=== PATIENT | female | born 1960 | race Caucasian/White ===

== ENCOUNTER → 2025-03-03 13:08 | Outpatient (BNVA) | payer MEDICARE, SELFPAY | PROVIDERS: PCP Family Medicine; Referring Provider Family Medicine; Visit Provider Physician Assistant Surgical | DX: J44.89 Other specified chronic obstructive pulmonary disease (principal) | CPT/HCPCS: 99205 ==

== ENCOUNTER 2025-04-07 03:46 | Outpatient (CLI) | payer MEDICARE, SELFPAY ==
[2025-04-07] MEDS: Methacholine 100 MG VIAL IH (17:16)
[2025-04-07] MEDS: Inhaler, Assist Device 1 EACH MC (17:16)
[2025-04-07] MEDS: Albuterol HFA 18 GM 200 PUFF INH IH (17:17)
--- NOTE | 2025-04-28 09:17 | W.PFT ---
Date of service: 04/07/25 Time of Service: 14:53 Pulmonary Function Test Result Indications: Asthma/COPD Impression 1. Good patient effort was noted. ATS standards for reproducibility were met. 2. Normal spirometry. 3. At 16 mg/mL of methacholine, there was only a 11% fall in FEV1. Conclusion: negative methacholine challenge test
== END 2025-04-07 03:47 | disposition home or self-care (01) ==
LOC: RT 03:46
PROVIDERS: PCP Family Medicine; Referring Provider Physician Assistant Surgical; Visit Provider Internal Medicine Pulmonary Disease
DX: J44.89 Other specified chronic obstructive pulmonary disease (principal)
CPT/HCPCS: 94070; 94726; 94729; 95070; J7674

== ENCOUNTER → 2025-04-09 13:25 | Outpatient (BNVA) | payer MEDICARE, SELFPAY | PROVIDERS: PCP Family Medicine; Referring Provider Family Medicine; Visit Provider Physician Assistant Surgical | DX: R06.00 Dyspnea, unspecified (principal) | CPT/HCPCS: 99214 ==

== ENCOUNTER 2025-05-06 02:33 | Outpatient (CLI) | payer MEDICARE, SELFPAY ==
--- NOTE | 2025-05-06 07:30 | DI.CT_ITS ---
Exam(s) CT CHEST WO EXAM: CT CHEST WO CLINICAL HISTORY: cough and dyspnea,r06.00. TECHNIQUE: Multi planar reconstructions were performed. CONTRAST MATERIAL: None COMPARISON: Outside XR Chest 2 Views from 12/26/2024 FINDINGS: CHEST: LUNGS: There are no confluent pulmonary infiltrates nor pleural effusions. There is a small noncalcified nodule in the right lower lobe measuring 4 mm. There is also a 3 mm noncalcified nodule in the right middle lobe. There is also a 8 millimeter nodular infiltrate in the posterior basal segment of the left lower lobe. MEDIASTINUM: There is no obvious hilar nor mediastinal adenopathy. Visualized thyroid unremarkable.The esophagus is mildly dilated and contains fluid material throughout its intrathoracic length. Small hiatal hernia. CARDIAC: Heart size is normal. There is no pericardial effusion. The diameter of the ascending thoracic aorta is upper normal. However, they aortic arch is right-sided. The left subclavian vein attains the left-side by passing behind the esophagus, anterior to the vertebral bodies. The descending thoracic aorta is also right-sided VISUALIZED UPPER ABDOMEN:The abdominal aorta is rule right of center in the partially visualized upper abdomen. No adrenal masses. Parapelvic cysts in left kidney. Spleen size normal. Liver is on the right side. Spleen is on the left side. OSSEOUS: No significant osseous lesions.No fractures. Multilevel chronic degenerative disc disease noted throughout the thoracic spinal column. There is also a calcific density projecting posteriorly from the T9-10 disc space which is consistent with a partially calcified prominent disc herniation. IMPRESSION: 1. Right-sided aortic arch and right side descending thoracic aorta again noted, as evident on the outside chest x-ray of 12/26/2024. No associated dextrocardia 2. There is a significant disc herniation incidentally noted at the T9-10 level which causes some compression of the thecal sac at this level. This disc herniation is partially calcified. 3. There are 3 small noncalcified nodular long densities, largest measuring 8 mm and located in the posterior basal segment of the left lower lobe. The other 2 smaller right lung nodules are in the right lower lobe and right middle lobe. Recommend follow-up CT scan in 3 months. RADIATION DOSE DELIVERED: 145.11mGy.cm Total DLP DATA REPOSITORY: All CT scans at this facility are submitted to the National Radiology Data Registry (NRDR) Dose Index Registry (DIR) with the [employer] (A[employer]). RADIATION OPTIMIZATION: All CT scans at this facility use at least one of these dose optimization techniques: automated exposure control; mA and/or kV adjustment per patient size (includes targeted exams where dose is matched to clinical indication); or iterative reconstruction.
--- NOTE | 2025-05-06 14:30 | DI.US_ITS ---
APPROVED REPORT EXAM: Comprehensive 2D, Doppler, and color-flow Echocardiogram Patient Location: Out-Patient [employer] Specialist: Anna Cuellar RDCS (AE) Indications: Wheezing and dyspnea, Negative PFT Other Information Study Quality: Adequate Conclusion Normal left ventricular wall thickness and chamber size. Ejection fraction is 55 to 60%. Wall motion is normal Normal right ventricular size and function Both atria are normal in size There is no structural or hemodynamically significant valvular disease Borderline dilated aortic root and ascending aorta Wall motion Left Ventricle The left ventricle is normal size. The left ventricular systolic function is normal. The left ventricular ejection fraction is within the normal range. There is normal left ventricular wall thickness. There is normal LV segmental wall motion. There is no ventricular septal defect visualized. LVEF is 57%. Right Ventricle The right ventricle is normal size. The right ventricular systolic function is normal. Atria The left atrium size is normal. The right atrium size is normal. The interatrial septum is intact with no evidence for an atrial septal defect. Aortic Valve The aortic valve is normal in structure. Aortic valve is trileaflet. There is no aortic valvular stenosis. Mitral Valve The mitral valve is normal in structure. No evidence of mitral valve stenosis. Trace mitral regurgitation. Tricuspid Valve The tricuspid valve is normal in structure. There is no tricuspid valve stenosis. Trace tricuspid regurgitation. Unable to assess PA pressure. Pulmonic Valve The pulmonary valve is normal in structure. There is no pulmonic valvular stenosis. Trace pulmonic regurgitation. Great Vessels Aortic root is mildly dilated. The ascending aorta is mildly dilated. Aortic arch is not well visualized. IVC is normal in size and collapses >50% with inspiration. Pericardium There is no pericardial effusion. 2D Dimensions IVSD d PLAX 0.93 cm F: 0.6-1.0 Ao Root d 3.70 cm F: 2.7 - 3.3 LVPW d PLAX 0.92 cm F: 0.6 - 1.0 Ao Asc Diam d 3.34 cm F: 2.3 - 3.1 LVID d PLAX 4.00 cm F: 3.8 - 5.2 LVDs 2.82 cm F: 2.2 - 3.5 LV EF Teichholz 56.3 % FS 29.02 % LV EDV (Teich) 69.1 mL LV ESV (Teich) 30.2 mL M-Mode TAPSE 1.79 cm (M/F) >1.7 Auto EF LV EDV A4C 97.9 mL LV EDV A2C 92.3 mL LV EDV BP 96.5 mL LV ESV A4C 41.6 mL LV ESV A2C 42.0 mL LV ESV BP 41.4 mL LVEF(%) A4C 57.5 % LVEF(%) A2C 54.5 % LVEF(%) BP 57.1 % LV SV A4C 56.3 ml LV SV A2C 50.3 ml LV SV BP 55.1 ml LV CO A4C 3.9 L/min LV CO A2C 3.3 L/min LV CO BP 3.6 L/min HR A4C 68.42 BPM HR A2C 65.34 BPM LV EDV Index (BP) LA Volume LA Length A4C 4.0 cm LA Length A2C 4.6 cm LA Area A4C s 12.19 cm2 LA Area A2C s 13.92 cm2 LA Vol A4C A-L 31.54 mL LA Vol A2C A-L 35.74 mL LA Vol Biplane A-L 36.0 mL LA Vol/BSA A4C A-L LA Vol/BSA A2C A-L LA Vol/BSA BP A-L 22.4 mL/m2 LA Vol A4C MOD 30.5 mL LA Vol A2C MOD 32.7 mL LA Vol BP MOD 33.7 mL LV Diastology MV E' medial 0.059 (>0.07 m/s) MV E Vmax 0.81 (0.4-1.3 m/s) MV E/E' MED 13.90 (<14) MV A Vmax 0.90 (0.4-1.3 m/s) MV E' lateral 0.107 (>0.1 m/s) E/A Ratio 0.9 MV E/E' LAT 7.59 (<14) MV E' Average 0.083 m/s MV E/E'(average) 9.82 Aortic Valve AoV Vmax 1.12 m/s LVOT Vmax 0.87 m/s AoV Peak Grad 5.0 mmHg LVOT Peak Grad 3.0 mmHg AoV Area (Vmax) 2.44 cm2 LVOT VTI 0.201 m AoV VTI 0.254 m LVOT Mean Grad 1.7 mmHg AoV Mean Liang. 0.80 m/s LVOT SV 63.72 mL AoV Mean Grad 2.9 mmHg LVOT Diam s 2.00 cm AoV Area (VTI) 2.51 cm2 AV Regurg Peak Gr. 5.04 mmHg Velocity Ratio 0.78 Mitral Valve MV DT 160 (160-240 msec) MV Vmax TIPS 0.88 m/s MV Mean Grad 1.2 (<2mmHg) MV VTI 0.330 m Pulmonary Valve PV Vmax 0.65 (0.5-1.5 m/s) RVOT Vmax 0.59 m/s PV Peak Grad 1.7 mmHg RVOT Peak Gr. 1.4 mmHg PV Mean Liang 0.46 m/s RVOT VTI 0.122 m PV Mean Grad 1.0 mmHg RVOT Mean Gr. 0.8 mmHg Tricuspid Valve RA Pressure 3.00 mmHg TV S' 0.11 m/s
== END 2025-05-06 02:53 ==
LOC: DI 02:33
PROVIDERS: PCP Family Medicine; Visit Provider Physician Assistant Surgical
DX: R06.00 Dyspnea, unspecified (principal); M51.24 Other intervertebral disc displacement, thoracic region; R91.8 Other nonspecific abnormal finding of lung field
CPT/HCPCS: 71250; 93306

== ENCOUNTER 2025-06-16 13:13 | Outpatient (CLI) | payer BC, SELFPAY ==
--- NOTE | 2025-06-16 14:30 | DI.RAD_ITS ---
Exam(s) XR CERVICAL SPINE COMP 4-5V EXAM: XR CERVICAL SPINE COMP 4-5V CLINICAL HISTORY: Pain M47.812 SPONDYLOSIS CERVICAL REGION M54.2 CERVICALGIA. TECHNIQUE: 2D digital imaging was performed. COMPARISON: No exams were available for comparison FINDINGS: Seven views No evidence of acute fracture. There is chronic disc space narrowing at C4-5 C5-6 and C6-7 levels. There is also degenerative facet related anterolisthesis of C3 upon C4 There is multilevel facet arthropathy. No cervical ribs. There is reversal of the normal curvature of the cervical spine. IMPRESSION: Chronic multilevel degenerative disc disease and degenerative facet arthropathy. Mild-moderate degenerative anterolisthesis of C3 upon C4 related to facet arthropathy. No acute fractures evident. DATA REPOSITORY: RADIATION DOSE DELIVERED:
--- NOTE | 2025-06-16 15:25 | DI.RAD_ITS ---
Exam(s) XR LUMBAR SPINE COMPLETE EXAM: XR LUMBAR SPINE COMPLETE CLINICAL HISTORY: Pain M54.59 M53.3 SACROCOCCYGEAL DISORDER G89.29 M47.816. TECHNIQUE: 2D digital imaging was performed. COMPARISON: CT CT CHEST WO from 05/06/2025 FINDINGS: Five views No evidence of acute fracture. There is multilevel moderate disc space narrowing. There is more severe disc space narrowing at L1-2. There is mild degenerative anterolisthesis of L4 upon L5 related to facet arthropathy. There is a mild degenerative scoliosis convex right. Sacroiliac joints appear unremarkable. IMPRESSION: Multilevel degenerative disc disease. Mild degenerative anterolisthesis L4 upon L5. DATA REPOSITORY: RADIATION DOSE DELIVERED:
== END 2025-06-16 13:33 ==
LOC: DI 08-01 13:13
PROVIDERS: PCP Family Medicine; Visit Provider Anesthesiology Pain Medicine
DX: M53.3 Sacrococcygeal disorders, not elsewhere classified; M47.816 Spondylosis without myelopathy or radiculopathy, lumbar region; M47.812 Spondylosis without myelopathy or radiculopathy, cervical region
CPT/HCPCS: 72050; 72110

== ENCOUNTER → 2025-06-18 13:20 | Outpatient (BNVA) | payer MEDICARE, SELFPAY | PROVIDERS: PCP Family Medicine; Referring Provider Family Medicine; Visit Provider Internal Medicine Pulmonary Disease | DX: R06.00 Dyspnea, unspecified (principal); R91.8 Other nonspecific abnormal finding of lung field; R13.10 Dysphagia, unspecified | CPT/HCPCS: 99214 ==

== ENCOUNTER 2025-06-18 14:23 | Outpatient (CLI) | payer BC, SELFPAY ==
[2025-06-18 14:48] LABS: Abs Immature Grans 0.01 10^3/uL (0.0-0.06); HCT 37.9 % (36.0-46.0); HGB 11.8 g/dL (11.2-15.7); Immature Grans % 0.2 %; MCH 29.6 pg (27.0-33.0); MCHC 31.1 % (32.0-36.0); MCV 95 fL (80-95); MPV 10.0 fL (8.0-11.0); Platelet Count 234 10^3/uL (130-400); RBC 3.98 10^6/uL (3.93-5.22); RDW 12.9 % (11.7-14.6); RDW-SD 45.6 fL; WBC 5.79 10^3/uL (4.4-10.8)
[2025-06-18 15:55] LABS: TSH 1.28 uIU/mL (0.36-3.74)
[2025-06-20 12:11] LABS: Ro60 Ab, IgG <7.0 CU (<20.0); SS-A/Ro, IgG <2.3 CU (<20.0); SS-B (La) Ab, IgG <3.3 CU (<20.0)
[2025-07-07 15:38] LABS: Anti-Jo-1 Ab <20 Units (<20)
[2025-07-07 15:41] LABS: Anti-Ku Ab Negative (Negative); Anti-MDA-5 Ab (CADM-140) <20 Units (<20); Anti-NXP-2 (P140) Ab <20 Units (<20); Anti-PM/Scl-100 Ab <20 Units (<20); Anti-TIF-1gamma Ab <20 Units (<20)
[2025-07-07 15:42] LABS: Anti-SS-A 52kD Ab, IgG <20 Units (<20); Anti-U2 RNP Ab Negative (Negative)
[2025-07-07 15:43] LABS: Anti-U3 RNP (Fibrillarin) Negative (Negative)
== END 2025-06-18 14:24 | disposition home or self-care (01) ==
LOC: LBO 07-07 14:23
PROVIDERS: Physician Assistant Surgical; PCP Family Medicine; Visit Provider Internal Medicine Pulmonary Disease
DX: R06.00 Dyspnea, unspecified (principal); Q20.3 Discordant ventriculoarterial connection; Q25.45 Double aortic arch
CPT/HCPCS: 36415; 83516; 86200; 86235; 84443; 85025; 86038; 86225; 86431

== ENCOUNTER 2025-06-25 10:13 | Outpatient (CLI) | payer MEDICARE, SELFPAY ==
[2025-06-25 10:44] VITALS: BP 123/95; PULSE 75; RESP 16; TEMP 36.6; O2SAT 97
[2025-06-25 11:15] VITALS: O2SAT 97
--- NOTE | 2025-06-25 11:16 | PDOC.PAIN ---
Date of service: 06/25/25 Time of Service: 11:32 Pain Managment Procedure Note Procedure Note Procedure Note: ?Sacroiliac Joint Steroid Injection ? Location: ? ? Left SI joint ? Pre-procedure Diagnosis: Sacroiliitis, not elsewhere classified - M46.1 ? Post-procedure Diagnosis:? The same as above ? Sedation:? NONE ? Medication: Depo-Medrol 40 mg, bupivacaine 0.5% 1 mL, Omnipaque 0.25 mL per joint ? Estimated blood loss:? less than 2 cc ? Surgeon:? Sang Lewis MD ? COMMENT: THIS WILL BE BOTH DIAGNOSTIC AND THERAPEUTIC ? Procedure Detail:? The procedure and potential risks were explained to the patient and informed written consent was obtained. The patient was escorted to the procedure room and placed in the prone position. Pillows were utilized for proper positioning and comfort. Time out was performed in the procedure room with nursing staff confirming the patient's identity, procedure to be performed, allergies, and any blood thinning or anti-platelet medications. The patient's lumbosacral area was prepped with ChloraPrep and draped in a sterile fashion. Sterile technique was maintained throughout the procedure.? Sterile gloves were used, a face mask was worn, and new single dose vials of all medications were used with the top being swabbed with alcohol and given time to dry prior to withdrawal of medication. Lidocaine 1% was used to anesthetize the skin. With fluoroscopic guidance, a 22-gauge 3.5 spinal needle was advanced into the posteroinferior aspect of the Left SI joint . Confirmation of position of the needle tip was obtained with injection of 0.25cc of Omnipaque 240 contrast which showed appropriate spread .? Following negative aspiration, 40mg of methylprednisolone mixed with 1 mL of bupivacaine 0.5% was injected.? The needle was gently removed. ?The patient tolerated the procedure well and was discharged home with instructions.? Permanent images saved and recorded. Plan:? Follow up prn. PAIN PRE PROCEDURE 03/11 POST PROCEDURE 11/11 COMMENT: [80] % BETTER AFTER INJECTION. I reviewed the patient's x-rays with her and she has significant degenerative changes in her cervical and lumbar spine. She complains of pain radiating to her right upper extremity and occasionally to her left. I am going to order an MRI of her cervical spine. Coding Conscious Sedation used for procedure: No CPT Codes: SI Joint Inj; incl Fluoro - 66310 ([id number] ~G) Additional Codes: Date of Service (73665) Date of service: 06/25/25 Diagnoses: Sacroiliitis, not elsewhere classified - M46.1
[2025-06-25] MEDS: Bupivacaine 0.5% Pres-Free 10 ML VIAL IJ (11:34)
[2025-06-25] MEDS: methylPREDNISolone ACETATE 80 MG/ML VIAL IJ (11:34)
[2025-06-25] MEDS: Omnipaque 240 MG/ML 50 ML BTL IJ (11:34)
[2025-06-25] MEDS: Nerve Block Tray 1 EACH MC (11:39)
== END 2025-06-25 10:14 | disposition home or self-care (01) ==
LOC: PC 10:13
PROVIDERS: PCP Family Medicine; Visit Provider Anesthesiology Pain Medicine
DX: M54.50 Low back pain, unspecified (principal); M46.1 Sacroiliitis, not elsewhere classified
CPT/HCPCS: 27096; 72200; J0665; J1010; Q9967

== ENCOUNTER → 2025-06-26 10:47 | Outpatient (BNVA) | payer MEDICARE, SELFPAY | PROVIDERS: PCP Family Medicine; Referring Provider Family Medicine; Visit Provider Surgery | DX: R13.10 Dysphagia, unspecified (principal) | CPT/HCPCS: 99213 ==

== ENCOUNTER 2025-07-09 02:04 | Outpatient (CLI) | payer BC, SELFPAY ==
--- NOTE | 2025-07-09 06:00 | DI.MRI_ITS ---
Exam(s) MR CERVICAL SPINE WO EXAM: MR CERVICAL SPINE WO CLINICAL HISTORY: Pain to right upper extremity,CERVICAL SPONDYLOSIS, CERVICAL RADICULITIS TECHNIQUE: Multiplanar multisequence MRI of the cervical spine was performed without intravenous contrast. COMPARISON: CR XR CERVICAL SPINE COMP 4-5V from 06/16/2025 FINDINGS: CERVICOMEDULLARY JUNCTION: Intact with no evidence of cerebellar tonsillar ectopia. No obvious abnormality of the odontoid process. No evidence of Chiari 1 malformation. CERVICAL SPINAL CORD: There is no abnormal signal in the cervical spinal cord and no evidence of focal cord atrophy nor focal cord swelling. OSSEOUS: There is reversal of the normal cervical curvature. There are no cervical fractures evident. No significant osseous lesions in the cervical vertebrae. INDIVIDUAL LEVELS: C2-3: No disc herniation nor central canal stenosis. No foraminal stenosis. Moderate bilateral facet arthropathy. C3-4: Normal disc height. Mild degenerative anterolisthesis of C3 upon C4. There is posterior annular bulging which effaces the thecal sac but not the cord. Central canal dimensions are lower normal at this level. There is moderate facet arthropathy on both sides. Moderate-severe bilateral foraminal stenosis. C4-5: This level exhibits advanced disc space narrowing. Posteriorly there is annular bulging which effaces the anterior thecal sac and contacts the cervical spinal cord.Mild central spinal canal stenosis. There is moderate bilateral facet arthropathy. Mild bilateral foraminal stenosis. C5-6: This level exhibits advanced disc space narrowing and anterior osseous lipping. Posteriorly there is broad relatively symmetrical annular bulging which flattens the thecal sac and anterior aspect of the spinal cord. Mild- moderate central canal stenosis evident at this level. Facet joints at this level exhibit only minimal degenerative changes. Moderate bilateral foraminal stenosis C6-7: This level also exhibits significant chronic disc space narrowing. There are bilateral disc-Luschka joint complexes. Broad annular bulging. Mild central canal stenosis. Facet joints at this level exhibit mild-moderate degenerative change. There is mild bilateral central canal stenosis.. C7-T1: No disc herniation nor central canal stenosis. Facet arthropathy. Minimal foraminal stenosis bilaterally.No foraminal stenosis. IMPRESSION: 1. Multilevel chronic degenerative disc disease and multilevel facet arthropathy, as described per individual level above.. 2. There is element of spinal canal stenosis at C4-5, C5-6 and C6-7 levels. 3. Multilevel foraminal stenosis noted. DATA REPOSITORY:
== END 2025-07-09 02:24 ==
LOC: DI 02:04
PROVIDERS: PCP Family Medicine; Visit Provider Anesthesiology Pain Medicine
DX: M47.812 Spondylosis without myelopathy or radiculopathy, cervical region (principal); M54.12 Radiculopathy, cervical region
CPT/HCPCS: 72141

== ENCOUNTER 2025-08-12 15:03 | Outpatient (CLI) | payer MEDICARE, SELFPAY ==
--- NOTE | 2025-08-12 15:30 | PDOC.PAIN_ITS ---
Date of service: 08/12/25 Time of Service: 16:02 Pain Managment Procedure Note Procedure Note Procedure Note: Cervical Medial Branch Block ? Location: Left Medial Branches ? Pre-procedure Diagnosis M47.812 Spondylosis without myelopathy or radiculopathy, cervical region ? Post-procedure Diagnosis:? The same as above ? Levels:C4,5,6 ? Sedation: None ? Estimated blood loss:? less than 2 ml ? Surgeon:? Sang Lewis MD COMMENT: Patient with cervical spondylosis and mostly left-sided neck pain. She had radiofrequency ablation in the past many years ago on the right side which did help. ? Procedure Detail:? The procedure and potential risks were explained to the patient and informed written consent was obtained. The patient was escorted to the procedure room and placed in the RIGHT lateral decubitus position. Pillows were utilized for proper positioning and comfort. Time out was performed in the procedure room with nursing staff confirming the patient's identity, procedure to be performed, allergies, and any blood thinning or anti-platelet medications. The patient's neck and upper back was prepped with ChloraPrep and draped in a sterile fashion. Sterile technique was maintained throughout the procedure.? Sterile gloves were used, a face mask was worn, and new single dose vials of all medications were used with the top being swabbed with alcohol and given time to dry prior to withdrawal of medication. A lateral fluoroscopic view was used to identify target of mid articular pillar. With fluoroscopic guidance, a 25 gauge Quincke needle was advanced to the articular waste. The distal needle tip was then advanced under lateral fluoroscopic view along the expected course of the LEFT C4,5,6, medial branch to the mid-portion of the trapezoid well posterior to the exiting nerve root.? 0.5 ml of 0.5% bupivacaine was then injected through each needle tip.? The needles were then gently removed. The patient tolerated the procedure well, and was transported to the recovery area f or observation and discharge instructions. Permanent images were saved and recorded. Follow-up:? The patient will return in1- 2 weeks for confirmatory CMBBs if they? meet the criteria from today's procedure lasting for at least 2 hours.? PRE PROCEDURE PAIN SCORE: 6/10 POST PROCEDURE PAIN SCORE: 0/10 COMMENT: Before the patient left patient had 100% pain relief. Coding Conscious Sedation used for procedure: No CPT Codes: CMBB (includes Fluoro) Cervical/Thoracic, 2nd lvl - 31872 ([id number] ~G) CMBB (includes Fluoro) Cervical/Thoracic, single lvl - 70191 ([id number] ~G) Additional Codes: Date of Service () Diagnoses: M47.812 Spondylosis without myelopathy or radiculopathy, cervical region
--- NOTE | 2025-08-12 15:30 | DI.RAD_ITS ---
Exam(s) XR PAIN CLINIC CERVICAL SP 2V EXAM: XR PAIN CLINIC CERVICAL SP 2V CLINICAL HISTORY: DX: Cervical Spondylosis. TECHNIQUE: Fluoroscopy was provided for the referring physician for guidance with performing pain clinic injection procedure. COMPARISON: No exams were available for comparison FINDINGS: Please see procedure note for details. Fluoro time: 25.1 seconds RADIATION DOSE DELIVERED: teresita Monreal=3.1 mGy
[2025-08-12 15:46] VITALS: PULSE 73; O2SAT 94
[2025-08-12 15:50] VITALS: PULSE 78; O2SAT 95
[2025-08-12] MEDS: Nerve Block Tray 1 EACH MC (16:06)
[2025-08-12] MEDS: Bupivacaine 0.5% Pres-Free 10 ML VIAL IJ (16:07)
== END 2025-08-12 15:04 | disposition home or self-care (01) ==
LOC: PC 15:06
PROVIDERS: PCP Family Medicine; Visit Provider Anesthesiology Pain Medicine
DX: M54.2 Cervicalgia (principal); M47.812 Spondylosis without myelopathy or radiculopathy, cervical region
CPT/HCPCS: 64490; 64491; 72040; J0665

== ENCOUNTER → 2025-09-02 11:22 | Outpatient (BNVA) | payer MEDICARE, SELFPAY | PROVIDERS: PCP Family Medicine; Referring Provider Family Medicine; Visit Provider Internal Medicine Pulmonary Disease | DX: R91.8 Other nonspecific abnormal finding of lung field (principal); R06.00 Dyspnea, unspecified; J39.8 Other specified diseases of upper respiratory tract; K22.2 Esophageal obstruction; Q25.40 Congenital malformation of aorta unspecified; Z87.891 Personal history of nicotine dependence | CPT/HCPCS: 99214 ==

== ENCOUNTER 2025-10-01 14:23 | Outpatient (CLI) | payer MEDICARE, SELFPAY ==
[2025-10-01 14:15] VITALS: BP 117/87; PULSE 87; RESP 18; TEMP 36.8; O2SAT 99
--- NOTE | 2025-10-01 14:39 | PDOC.PAIN ---
Date of service: 10/01/25 Time of Service: 15:07 Pain Managment Procedure Note Procedure Note Procedure Note: CERVICAL MEDIAL BRACH BLOCK #2 Cervical Medial Branch Block ? Location: Left Medial Branches ? Pre-procedure Diagnosis M47.812 Spondylosis without myelopathy or radiculopathy, cervical region ? Post-procedure Diagnosis:? The same as above ? Levels:C4,5,6 ? Sedation: None ? Estimated blood loss:? less than 2 ml ? Surgeon:? Sang Lewis MD COMMENT: Patient had good relief from first medial branch block and is here for confirmatory block ? Procedure Detail:? The procedure and potential risks were explained to the patient and informed written consent was obtained. The patient was escorted to the procedure room and placed in the RIGHT lateral decubitus position. Pillows were utilized for proper positioning and comfort. Time out was performed in the procedure room with nursing staff confirming the patient's identity, procedure to be performed, allergies, and any blood thinning or anti-platelet medications. The patient's neck and upper back was prepped with ChloraPrep and draped in a sterile fashion. Sterile technique was maintained throughout the procedure.? Sterile gloves were used, a face mask was worn, and new single dose vials of all medications were used with the top being swabbed with alcohol and given time to dry prior to withdrawal of medication. A lateral fluoroscopic view was used to identify target of mid articular pillar. With fluoroscopic guidance, a 25 gauge Quincke needle was advanced to the articular waste. The distal needle tip was then advanced under lateral fluoroscopic view along the expected course of the LEFT C4,5,6 medial branch to the mid-portion of the trapezoid well posterior to the exiting nerve root.? 0.5 ml of 0.5% lidocaine 2% was then injected through each needle tip.? The needles were then gently removed. The patient tolerated the procedure well, and was transported to the recovery area for observation and discharge instructions. Permanent images were saved and recorded. Follow-up:? Will plan to proceed with cervical medial branch RFA if the patient gets good relief from today's procedure lasting for at least 2 hours. PRE PROCEDURE PAIN SCORE: 9/10 POST PROCEDURE PAIN SCORE: 0/10 COMMENT: Before the patient left patient had 100% pain relief. Coding Conscious Sedation used for procedure: No CPT Codes: CMBB (includes Fluoro) Cervical/Thoracic, 2nd lvl - 31458 ([id number] ~G) CMBB (includes Fluoro) Cervical/Thoracic, single lvl - 56764 ([id number] ~G) Additional Codes: Date of Service () Diagnoses: M47.812 Spondylosis without myelopathy or radiculopathy, cervical region
[2025-10-01 14:57] VITALS: PULSE 91; O2SAT 97
[2025-10-01 15:00] VITALS: PULSE 91; O2SAT 98
[2025-10-01] MEDS: Lidocaine 2% Pres-Free 5 ML VIAL IJ (15:11)
[2025-10-01] MEDS: Nerve Block Tray 1 EACH MC (15:11)
--- NOTE | 2025-10-01 15:11 | DI.RAD_ITS ---
Exam(s) XR PAIN CLINIC CERVICAL SP 2V EXAM: XR PAIN CLINIC CERVICAL SP 2V CLINICAL HISTORY: DX: Cervical Spondylosis. TECHNIQUE: Fluoroscopy was provided for the referring physician for guidance with performing pain clinic injection procedure. COMPARISON: No exams were available for comparison FINDINGS: Please see procedure note for details. Fluoro time: 16.9 seconds RADIATION DOSE DELIVERED: teresita Monreal=1.42 mGy
== END 2025-10-01 14:24 | disposition home or self-care (01) ==
LOC: PC 14:24
PROVIDERS: PCP Family Medicine; Visit Provider Anesthesiology Pain Medicine
DX: M54.2 Cervicalgia (principal); M47.812 Spondylosis without myelopathy or radiculopathy, cervical region
CPT/HCPCS: 64490; 64491; 72040